=== PATIENT | female | born 1965 | race Caucasian/White ===

== ENCOUNTER → 2023-02-09 | Outpatient (CLI) | payer MEDICARE, OTHER ==
[2023-02-09 15:12] LABS: Candida species (DNA Probe) Negative (NEGATIVE); G. vaginalis (DNA Probe) Negative (NEGATIVE); T. vaginalis (DNA Probe) Negative (NEGATIVE)
[2023-02-10 16:09] LABS: HPV 16 Negative (Negative); HPV 18 Negative (Negative); HPV OTHER HR TYPES Negative (Negative)
== END ==
LOC: LAB 11:39 → LAB SHORT 11:39
PROVIDERS: Obstetrics & Gynecology
DX: Z01.419 Encounter for gynecological examination (general) (routine) without abnormal findings (principal); N76.0 Acute vaginitis
CPT/HCPCS: 87480; 87510; 87624; 87660; G0145

== ENCOUNTER → 2023-06-18 | Outpatient (CLI) | payer MEDICARE, OTHER | LOC: LAB 17:47 → LAB SHORT 17:47 | DX: R30.0 Dysuria (principal) | CPT/HCPCS: 87077; 87086; 87186 ==

== ENCOUNTER 2023-10-07 07:07 | Day surgery (SDC) | payer MEDICARE, OTHER ==
[~2023-10-07] VITALS: Ht 170.2 cm; Wt 84.1 kg
[~2023-10-07 07:07] MED LIST: ACYC400; Aspir 8181 MG PO; BENZ100A PO; BUPR100ER PO; Balanced Salt Epinephrine Irrigation Solution 500 mL IR SCH; Betamethasone V15 GM TOP; CLON1 PO; CYCL10 PO; Crestor20 MG PO; FERROUS SULFATE PO; FLONASE ALLERG9.9 M2; FLUT1DIS5; FURO40 PO; GABA100 PO; GLIP5; HUMULIN N100 UNIT/6; LOSA25 PO; Lidocaine HCl/Pf 1% 5 ML VIAL XX SCH; METF500 PO; METO50ER; Moxifloxacin HCL 0.5 MG/0.1 ML 0.4MLSYR LEFTEYE SCH; NITR.4SL SL; NS 500 ML IV ONE; OMEP20ER PO; ONDA4ODT PO; PHENYLEPHRINE\\TROPICAMIDE\\TETRACAINE OPHTHALMIC DILATING SOLN LEFTEYE PRN; Percocet 5-3251 EACH PO; Povidone-Iodine 450 DROP/30 ML Solution LEFTEYE SCH; Povidone-Iodine 450 DROP/30 ML Solution ONE; SPIR25 PO; SPIRIVA RESPIMAT4 G3 PO; TERBINAFINE; THERA-D2000 UNIT PO; TRAZ50; Triamcinolone Inj Susp 40 MG / ML 1ML Vial INJ SCH; Ventolin/Prove6.7 GM INH
[2023-10-07] MEDS ORDERED: MONT10T PO (07:27)
[2023-10-07] MEDS ORDERED: DULO30 PO (07:28)
[2023-10-07] MEDS ORDERED: Triamcinolone Inj Susp 40 MG / ML 1ML Vial ONE (07:31)
[2023-10-07] MEDS ORDERED: Lidocaine HCl/Pf 1% 5 ML VIAL ONE (07:31)
[2023-10-07] MEDS ORDERED: TRELEGY ELLIPT1 EACH INH (07:32)
[2023-10-07] MEDS ORDERED: JARDIANCE10 MG PO (07:36)
[2023-10-07] MEDS ORDERED: TRAZ100 PO (07:37)
[2023-10-07] MEDS ORDERED: DOXYCYCLINE HY100 M1 PO (07:39)
[2023-10-07] MEDS ORDERED: NS 500 ML IV ONE (07:58)
[2023-10-07] MEDS ORDERED: FentaNYL Citrate 50 MCG/ML 2 ML Injection ONE (08:08)
[2023-10-07] MEDS ORDERED: Midazolam HCl 1MG / ML 2ML Vial ONE ×3 (08:08→08:27)
[2023-10-07] MEDS ORDERED: Tetracaine HCl 0.5% Opth Soln 15 ml LEFTEYE ONE (08:19)
[2023-10-07 08:42] VITALS: BP 126/64
== END 2023-10-07 08:54 | disposition home or self-care (01) ==
LOC: ORSCSDS 07:07
PROVIDERS: Ophthalmology
PROC: 08RK3JZ Replacement of Left Lens with Synthetic Substitute, Percutaneous Approach (ICD-10-PCS; principal; 2023-10-07 08:30)
DX: E11.36 Type 2 diabetes mellitus with diabetic cataract (principal); H25.12 Age-related nuclear cataract, left eye; Z96.1 Presence of intraocular lens; F41.9 Anxiety disorder, unspecified; I10 Essential (primary) hypertension; J44.9 Chronic obstructive pulmonary disease, unspecified; Z98.84 Bariatric surgery status; Z79.899 Other long term (current) drug therapy
CPT/HCPCS: 82947; J2001; J2250; J3010; J3301; J7040; V2632

== ENCOUNTER → 2024-04-28 | Outpatient (CLI) | payer OTHER ==
[~2024-04-28] MED LIST changes: -Balanced Salt Epinephrine Irrigation Solution 500 mL IR SCH; +DOXYCYCLINE HY100 M1 PO; +DULO30 PO; +JARDIANCE10 MG PO; -Lidocaine HCl/Pf 1% 5 ML VIAL XX SCH; +MONT10T PO; -Moxifloxacin HCL 0.5 MG/0.1 ML 0.4MLSYR LEFTEYE SCH; -NS 500 ML IV ONE; -PHENYLEPHRINE\\TROPICAMIDE\\TETRACAINE OPHTHALMIC DILATING SOLN LEFTEYE PRN; -Povidone-Iodine 450 DROP/30 ML Solution LEFTEYE SCH; -Povidone-Iodine 450 DROP/30 ML Solution ONE; +TRAZ100 PO; +TRELEGY ELLIPT1 EACH INH; -Triamcinolone Inj Susp 40 MG / ML 1ML Vial INJ SCH
[2024-04-28 15:38] LABS: Bacterial Vaginosis PCR Negative (NEGATIVE); Candida Group, PCR DETECTED (NOT DETECT); Candida glabrata-krusei, PCR DETECTED (NOT DETECT)
== END | disposition home or self-care (01) ==
LOC: LAB SHORT 13:11 → LAB 13:11
PROVIDERS: Family Medicine
DX: N89.8 Other specified noninflammatory disorders of vagina (principal)
CPT/HCPCS: 87481; 87661; 87801

== ENCOUNTER → 2024-08-17 | Outpatient (CLI) | payer OTHER ==
[2024-08-17 08:16] LABS: BASOPHILS ABSOLUTE AUTO 0.06 K/mm3 (0.00-0.23); BASOPHILS PERCENT AUTO 1 % (0-2); EOSINOPHILS ABSOLUTE AUTO 0.02 K/mm3 (0.00-0.68); EOSINOPHILS PERCENT AUTO 0 % (0-6); Hematocrit 42.9 % (33.0-51.0); Hemoglobin 14.2 g/dL (11.5-16.0); IMMATURE GRAN ABSOLUTE AUTO 0.04 K/mm3 (0.00-0.10); IMMATURE GRAN PERCENT AUTO 0 % (0-1); LYMPHOCYTES ABSOLUTE AUTO 1.05 K/mm3 (0.84-5.20); LYMPHOCYTES PERCENT AUTO 8 % (21-46); MONOCYTES ABSOLUTE AUTO 0.99 K/mm3 (0.16-1.47); MONOCYTES PERCENT AUTO 8 % (4-13); Mean Corpuscular HGB 28.6 pg (26.0-34.0); Mean Corpuscular HGB Conc 33.1 g/dL (31.5-36.5); Mean Corpuscular Volume 86 fL (80-100); Mean Platelet Volume 10.1 fL (9.1-12.4); NEUTROPHILS ABSOLUTE AUTO 10.94 K/mm3 (1.96-9.15); NEUTROPHILS PERCENT AUTO 83 % (41-73); Platelet Count 249 K/mm3 (150-400); RDW Coefficient Variation 14.2 % (11.7-14.2); RDW Standard Deviation 44.8 fL (35.1-46.3); Red Blood Cell Count 4.97 M/mm3 (3.80-5.20)
[2024-08-17 09:12] LABS: Albumin, Blood 3.6 g/dL (3.4-5.0); Albumin/Globulin Ratio 0.9 (0.8-1.8); Bun/Creatinine Ratio 14.6 (12.0-20.0); Calcium, Blood 9.3 mg/dL (8.5-10.1); Creatinine, Blood 1.03 mg/dL (0.40-1.00); Globulin, Blood 4.2 g/dL (2.2-4.0); Potassium, Blood 3.5 mmol/L (3.5-5.5); Total Protein, Blood 7.8 g/dL (6.4-8.2)
== END ==
LOC: LAB SHORT 08:06 → LAB 08:06
PROVIDERS: Family Medicine
DX: R50.9 Fever, unspecified (principal)
CPT/HCPCS: 80053; 85025

== ENCOUNTER → 2025-05-14 | Outpatient (CLI) | payer OTHER ==
[2025-05-14 12:47] LABS: Creatinine, Urine Random 29.6 mg/dL (27.00-270.00); Microalb/Creat Ratio UR, Rand 28.007 mg/g (0.000-30.000); Microalbumin, Random Urine 8.29 mg/L (0.000-20.000)
== END ==
LOC: LAB SHORT 10:14 → LAB 10:14
PROVIDERS: Family Medicine
DX: E11.65 Type 2 diabetes mellitus with hyperglycemia (principal); E11.42 Type 2 diabetes mellitus with diabetic polyneuropathy; N18.31 Chronic kidney disease, stage 3a; Z79.4 Long term (current) use of insulin; E11.22 Type 2 diabetes mellitus with diabetic chronic kidney disease
CPT/HCPCS: 82043; 82570

== ENCOUNTER → 2025-08-13 | Outpatient (CLI) | payer OTHER | LOC: PLD 15:23 → LAB SHORT 15:23 | DX: L30.8 Other specified dermatitis (principal) | CPT/HCPCS: 88305; 88312 ==